=== PATIENT | female | born 1940 | race Caucasian/White ===

== ENCOUNTER 2021-01-09 15:23 | Emergency (ER) | payer SELFPAY ==
[~2021-01-09] VITALS: Ht 170.2 cm; Wt 65.0 kg
--- NOTE | 2021-01-09 15:37 | NUR ---
THIS IS A 80 YO F BIB EMS [facility]. PT A&OX3M, UNKNOWN BASELINE. PT CONVERSING IN FULL SENTENCES W/O DIFFICULTY, INTERMITTENTLY SPEAKING NONSENSE. PT REPORTS DOES NOT KNOW WHY SHE IS HERE. POOR HISTORIAN, UNKNOWN HISTORY. PER EMS, PT WAS WALKING TOWARDS STAFF MEMBER, STARTED TO STUMBLE AND STATES TO CALL AN AMBULANCE. PER EMS PT REPORTS CP AND NAUSEA, DENIES NOW. PT RECEIVED 324 ASPIRIN AND 4 [employer] MA[employer]. PT PRESENTS W/ RASH COVERING TORSO, UNKNWON HOW LONG PT HAS HAD. PT RESTING ON GURNEY W/ CALL LIGHT IN REACH AND SIDE RAILS UPX2. SONIA HERMAN AT BEDSIDE.
--- NOTE | 2021-01-09 15:45 | NUR ---
RAD AT BEDSIDE.
--- NOTE | 2021-01-09 15:50 | NUR ---
LAB AT BEDSIDE.
[2021-01-09 16:00] LABS: BASOPHILS % (AUTO) 1 % (0-1); EOSINOPHILS % (AUTO) 2 % (1-7); LYMPHOCYTES % (AUTO) 12 % (22-44); MEAN CORPUSCULAR HEMOGLOBIN 34.3 pg (27.0-34.8); MEAN CORPUSCULAR HGB CONC 33.5 g/dL (32.4-35.8); MEAN PLATELET VOLUME 7.8 fL (7.4-10.4); MONOCYTES % (AUTO) 10 % (2-9); NEUTROPHILS % (AUTO) 74 % (42-75); PLATELET COUNT 320 x10^3/uL (130-400); RED BLOOD COUNT 4.05 x10^6/uL (3.82-5.3)
[2021-01-09 16:01] LABS: MD NO
[2021-01-09 16:10] LABS: ALANINE AMINOTRANSFERASE 18 U/L (12-78); ALBUMIN 3.3 g/dL (3.4-5.0); ANION GAP 5 mmol/L (5-15); CALCIUM 8.3 mg/dL (8.5-10.1); CHLORIDE 114 mmol/L (98-107); CREATININE 0.76 mg/dL (0.55-1.02)
[2021-01-09 16:15] LABS: ALKALINE PHOSPHATASE 88 U/L (45-117); BILIRUBIN,TOTAL 0.6 mg/dL (0.2-1.0); TOTAL PROTEIN 6.5 g/dL (6.4-8.2); TROPONIN I < 0.015 ng/mL (0.000-0.045)
--- NOTE | 2021-01-09 16:48 | NUR ---
PT ATTEMPTING TO GET OFF OF [facility], EDUCATED THAT PT HAS NOT BEEN DISCHARGED YET. PT RETURNED TO [facility] W/O INCIDENT. RESP EVEN AND UNLABORED, TON.
--- NOTE | 2021-01-09 17:07 | NUR ---
PT SITTING UP [facility]N RAMON SPEAKING ON PHONE. RESP EVEN AND UNLABORED,
--- NOTE | 2021-01-09 17:18 | NUR ---
PT REPORTS TELLING SON IN LAW JASMYN ([phone]) THAT SHE IS AT [facility] AND HE NEEDS TO PICK HER UP. MESSAGE LEFT W/ SON IN LAW OK PER PT UPDATING ON PTS LOCATION.
--- NOTE | 2021-01-09 17:53 | NUR ---
SPOKE W/ PTS DAUGHTER JERICA [phone]. PT HAS BEEN CONFUSED X1 YEAR AND FAMILY SUSPECTS EARLY DEMENTIA. WORSE X3 MONTHS. PT WAS DX W/ UTI X1 WEEK AGO AND IS STILL TAKING ABX. LAST DOSE TOMORROW. PER DAUGHTER [facility] STAFF CHECKS ON PT 4 TIMES A DAY. CAREGIVER GOES TO FACILITY TWICE A DAY TO ADMINISTER MEDS. PRIMARY CARE PROVIDER DR.VANESSA MENON W/ [place]. PTS ONLY HX IS HTN FOR WHICH SHE TAKES FELODIPINE, METOPROLOL. PER DAUGHTER, LEG SWELLING INCREASED AFTER PT BECAME NONCOMPLIANT W/ MEDS HAS SEEN PRIMARY FOR COMPLAINT. DAUGHTER STATES THAT SHE FEELS PT WOULD BE SAFE TO DC HOME IF THERE IS NO MEDICAL REASON TO KEEP HER.
--- NOTE | 2021-01-09 17:53 | NUR ---
PT STATES UNABLE TO URINATE. PER OK W/ NO SAMPLE.
[2021-01-09 18:31] VITALS: BP 140/61
--- NOTE | 2021-01-09 18:31 | NUR ---
[facility] TO PROCEDURE WRITER PT AT 1894
== END 2021-01-09 19:02 | disposition home or self-care (01) ==
LOC: ED 18:26
DX: R07.89 Other chest pain (principal); R60.0 Localized edema; R06.02 Shortness of breath; R11.0 Nausea; F17.210 Nicotine dependence, cigarettes, uncomplicated
CPT/HCPCS: 36415; 71045; 80053; 83880; 84484; 85025; 93005; 99285